=== PATIENT | female | born 1970 | race Caucasian/White ===

== ENCOUNTER 2018-09-20 05:39 | Day surgery (SDC) | payer MEDICARE ==
[2018-09-20] MEDS: ACETAMINOPHEN 500 MG TAB PO (07:01)
[2018-09-20] MEDS ORDERED: FENTAnyl 50 MCG/ML VIAL IV ×2 (07:30)
[2018-09-20] MEDS ORDERED: LABETALOL HCL 20MG INJ IV (07:30)
[2018-09-20] MEDS ORDERED: DIPHENHYDRAMINE 50 MG INJ IV (07:30)
[2018-09-20] MEDS ORDERED: ONDANSETRON 4 MG INJ IV (07:30)
[2018-09-20] MEDS ORDERED: HYDROmorphONE 1 MG/5 ML IV SYRINGE IV ×3 (07:30)
[2018-09-20] MEDS ORDERED: hydrALAzine 20 MG INJ IV (07:30)
[2018-09-20] MEDS ORDERED: MEPERIDINE 25 MG INJ IV (07:30)
[2018-09-20] MEDS ORDERED: morphine 2 MG INJ IV ×2 (07:30)
[2018-09-20] MEDS: SOD CHLORIDE 0.9% 1,000 ML IV (07:30)
[2018-09-20] MEDS ORDERED: OXYCODONE/ACETAMINOPHEN (5/325) TAB PO ×2 (07:30)
[2018-09-20] MEDS ORDERED: EPHEDrine 25 MG/5 ML SYG IV (07:30)
[2018-09-20] MEDS ORDERED: CEFAZOLIN 1 GM INJ (07:33)
[2018-09-20] MEDS ORDERED: LIDOCAINE 2% (SDV) 5 ML INJ (07:33)
[2018-09-20] MEDS ORDERED: FENTAnyl 50 MCG/ML VIAL (07:33)
[2018-09-20] MEDS ORDERED: ONDANSETRON 4 MG INJ (07:33)
[2018-09-20] MEDS ORDERED: MIDAZOLAM 1 MG/ML 2 ML INJ ×2 (07:33→08:13)
[2018-09-20] MEDS ORDERED: PROPOFOL 60 ML (07:33)
[2018-09-20] MEDS: POLYMYXIN/BACITRACIN 1L IRRIG (07:53)
[2018-09-20] MEDS: BUPIVACAINE 0.5% (SDV) 30 ML INJ (07:53)
[2018-09-20] MEDS: LIDOCAINE 2% (MDV) 20 ML INJ (07:53)
[2018-09-20] MEDS: ALBUTEROL 0.083% (NEB) 2.5 MG/3 ML AMP HHN (09:01)
== END 2018-09-20 11:05 | disposition home or self-care (01) ==
LOC: SDS 05:39
DX: M89.9 Disorder of bone, unspecified (principal); I10 Essential (primary) hypertension; E11.9 Type 2 diabetes mellitus without complications; D64.9 Anemia, unspecified; E11.42 Type 2 diabetes mellitus with diabetic polyneuropathy; E78.5 Hyperlipidemia, unspecified; Z86.73 Personal history of transient ischemic attack (TIA), and cerebral infarction without residual deficits; R06.02 Shortness of breath
CPT/HCPCS: 28805; 82962; 94664